=== PATIENT | female | born 1965 | race Caucasian/White ===

== ENCOUNTER → 2017-05-11 | Outpatient (CLI) | payer OTHER ==
[~2017-05-11] MED LIST: BENADRYL ALLERG25 MG PO; IBUPROFEN200 MG PO
--- NOTE | 2017-05-11 14:52 | RADIOLOGY REPORT PS360 ---
HIP LT 2-3V W/PELVIS IF PERFOR HISTORY: Left hip pain, left-sided sciatica SCIATICA OF LEFT SIDE ORDERING PHYSICIAN: Ramsey Sanchez MD PATIENT AGE: 52 years COMPARISON: None FINDINGS: No fracture or dislocation is evident. Minimal osteoarthritic changes are present involving both hips with mild osteophyte formation along the inferior aspect of the acetabulum. No fracture or dislocation. No lytic or blastic change. There are facet arthritic changes on the left at L5-S1. IMPRESSION: 1. Minimal osteoarthritic changes of the hips. 2. Facet arthritic change on the left at L5-S1
== END ==
LOC: RAD 14:26
DX: M54.32 Sciatica, left side (principal)

== ENCOUNTER → 2017-05-22 | Outpatient (CLI) | payer OTHER ==
--- NOTE | 2017-05-24 20:33 | RADIOLOGY REPORT PS360 ---
DIG MAMM-SCREEN MARNI W/CAD CAD Screening COMPARISON: Digital mammograms 05/12/2016 and 11/24/2014 INDICATION: There is a history of breast cancer in patient's mother. TECHNIQUE: Standard CC and MLO images were obtained. R2 CAD reviewed. FINDINGS: The breasts are composed primarily of fat with minimal scattered fiber glandular densities throughout each breast basely unchanged from the previous studies. There is a possible developing nodular density just deep to the nipple left breast. This has benign features but recommend patient return for spot compression views and possibly ultrasound as well. There are no suspicious microcalcifications. There are fatty replaced nodes in both axilla. IMPRESSION: Fatty type breast parenchyma possible new or developing asymmetric density left breast and recommend the patient return for spot compression views in MLO and CC projection and possibly ultrasound if this proves to be a true lesion BI-RADS CATEGORY: 0_Incomplete: Need additional imaging RECOMMENDED FOLLOWUP: ADD ADDITIONAL IMAGING (A letter has been sent to the patient regarding results of the study.)
== END ==
LOC: RAD 15:49
DX: N60.11 Diffuse cystic mastopathy of right breast (principal); N60.12 Diffuse cystic mastopathy of left breast; Z12.31 Encounter for screening mammogram for malignant neoplasm of breast
CPT/HCPCS: G0202